=== PATIENT | male | born 1995 | race African-American/Black ===

== ENCOUNTER 2020-01-01 19:45 | Emergency (ER) | payer SELFPAY ==
--- NOTE | 2020-01-01 20:44 | ER Document Report ---
ED Medical Screen (RME) - General Chief Complaint: Fever Stated Complaint: FEVER,SORE THROAT Time Seen by Provider: 01/01/20 20:41 Mode of Arrival: Ambulatory Information source: Patient Notes: 24-year-old male presents emergency department with complaints of fever sore throat headache body aches for the past few days. Patient reports he last took Motrin approximately 1600. Reports his head feels a little bit better. Did not receive the flu vaccine this year. No complaints of vomiting or diarrhea. I have greeted and performed a rapid initial assessment of this patient. A comprehensive ED assessment and evaluation of the patient, analysis of test results and completion of the medical decision making process will be conducted by additional ED providers. - Related Data Allergies/Adverse Reactions: No Known Allergies Allergy (Verified 01/01/20 20:41) Physical Exam - Vital signs Vitals: Temp Pulse Resp BP Pulse Ox 99.6 F 77 16 131/75 H 99 01/01/20 19:49 01/01/20 19:49 01/01/20 19:49 01/01/20 19:49 01/01/20 19:49 Course - Vital Signs Vital signs: Temp Pulse Resp BP Pulse Ox 99.6 F 77 16 131/75 H 99 01/01/20 19:49 01/01/20 19:49 01/01/20 19:49 01/01/20 19:49 01/01/20 19:49
[2020-01-01 21:19] LABS: A TYPE INFLUENZA AG NEGATIVE (NEGATIVE)
[2020-01-01 21:20] LABS: B INFLUENZA AG NEGATIVE (NEGATIVE)
[2020-01-01] MEDS ORDERED: DEXAMETHASONE SOD PHOS INJ 10 MG/1 ML VIAL IM ONE (23:18)
[2020-01-01] MEDS ORDERED: AMOXICILLIN TRIHYDRATE 500 MG CAPSULE PO ONE (23:19)
--- NOTE | 2020-01-01 23:22 | ER Document Report ---
HPI - HPI Time Seen by Provider: 01/01/20 20:41 Context: Patient is a 24-year-old male that comes to the emergency department for chief complaint of sore throat for the past 3 days. He states he had a fever yesterday as well. He denies congestion, cough, nausea, vomiting, headache, or inability to swallow. He denies any obvious exposures. He is not vaccinated for influenza. He denies any daily medications or diagnosed past medical history. - CONSTITUTIONAL Constitutional: REPORTS: Fever - EENT EENT: REPORTS: Sore Throat Past Medical History - General Information source: Patient - Social History Smoking Status: Current Every Day Smoker Chew tobacco use (# tins/day): No Frequency of alcohol use: Occasional Drug Abuse: None Lives with: Family Family History: Reviewed & Not Pertinent Patient has suicidal ideation: No Patient has homicidal ideation: No - Medical History Medical History: Negative Surgical Hx: Negative - Immunizations Immunizations up to date: Yes Hx Diphtheria, Pertussis, Tetanus Vaccination: Yes Vertical Provider Document - CONSTITUTIONAL General Appearance: WD/WN, No Apparent Distress - INFECTION CONTROL TRAVEL OUTSIDE OF THE [place] IN LAST 30 DAYS: No - HEENT HEENT: Atraumatic, Normocephalic. negative: Normal ENT Exam - Erythema of the posterior pharynx with a mild patchy rash; mild tonsillar swelling and erythema but no exudates, no evidence of peritonsillar abscess, patent airway, unremarkable ENT exam otherwise - NECK Neck: Other - Bilateral anterior cervical adenopathy - RESPIRATORY Respiratory: Breath Sounds Normal, No Respiratory Distress - CARDIOVASCULAR Cardiovascular: Regular Rate, Regular Rhythm. negative: Tachycardia - GI/ABDOMEN Gastrointestinal: Abdomen Soft, Abdomen Non-Tender - BACK Back: Normal Inspection - MUSCULOSKELETAL/EXTREMETIES Musculoskeletal/Extremeties: MAEW, FROM, Non-Tender - NEURO Level of Consciousness: Awake, Alert, Appropriate Motor/Sensory: No Motor Deficit, No Sensory Deficit - DERM Integumentary: Warm, Dry, No Rash Course - Re-evaluation Re-evalutation: Work-up from triage indicates negative influenza but positive strep test. This is consistent with patient's evaluation, no evidence of abscess or concerning findings otherwise. Discussed options, provided with Decadron and amoxicillin, discussed potential for spread, expectations, follow-up, return precautions. Patient states understanding and agreement. He is tolerating p.o. well. Stable at time of discharge. - Vital Signs Vital signs: Temp Pulse Resp BP Pulse Ox 99.6 F 77 16 131/75 H 99 01/01/20 19:49 01/01/20 19:49 01/01/20 19:49 01/01/20 19:49 01/01/20 19:49 Discharge - Discharge Clinical Impression: Strep pharyngitis, Anterior cervical adenopathy Condition: Stable Disposition: HOME, SELF-CARE Additional Instructions: You have strep pharyngitis, a bacterial infection of the throat. Take antibiotics as prescribed to completion. Take Tylenol and ibuprofen together if needed for pain (you can take 1000 mg of Tylenol and 600 mg of ibuprofen every 6 hours). Drink plenty fluids and rest. Symptoms should resolve. Follow-up with primary care. Return if you worsen including severe worsening pain or swelling, inability to swallow, spiking fevers, or any other concerning symptoms. Prescriptions: Amoxicillin Trihydrate [Amoxil 500 mg Capsule] 500 mg PO BID 10 Days #20 capsule
[2020-01-01 23:37] VITALS: BP 128/85
== END 2020-01-01 23:36 | disposition home or self-care (01) ==
LOC: ER 19:45
DX: J02.0 Streptococcal pharyngitis (principal); R50.9 Fever, unspecified; R59.0 Localized enlarged lymph nodes; F17.200 Nicotine dependence, unspecified, uncomplicated
CPT/HCPCS: 99283; 96372; 87880; 87804; J1100